=== PATIENT | male | born 1955 | race Caucasian/White ===

== ENCOUNTER 2016-11-20 15:51 | Emergency (ER) | payer BC ==
[~2016-11-20] VITALS: Ht 185.4 cm; Wt 139.2 kg
[~2016-11-20 15:51] MED LIST: ANTIVERT25 MG PO; BUSPIRONE HCL10 MG PO; MICARDIS HCT1 TABLE1 PO; TAZTIA XT180 M1 PO
[2016-11-20 16:57] LABS: HEMATOCRIT 48.5 % (38.0-50.0); MCH 26.8 PG (29.0-34.0); MCHC 30.7 G/DL (30.0-36.0); MCV 87.4 FL (86-99); MEAN PLAT.VOLUME 9.8 uM^3 (9.0-12.4); PLATELET COUNT 327 K/uL (156-360); RBC DIS.WIDTH-CV 12.9 % (11.8-14.6); RBC DIS.WIDTH-SD 41.4 % (39-53); RED BLOOD COUNT 5.55 M/uL (4.00-5.50); WHITE BLOOD COUNT 10.2 K/uL (4.1-10.2)
[2016-11-20] MEDS ORDERED: MEN 50 PLUS MU1 EACH PO (17:00)
[2016-11-20 17:05] LABS: CHLORIDE 102 mEq/L (99-109); POTASSIUM 4.5 mEq/L (3.7-5.4); SODIUM 139 mEq/L (136-147)
[2016-11-20 17:06] LABS: ADD MIUA? YES; BILIRUBIN NEGATIVE; BLOOD LARGE; COLOR YELLOW ((YELLOW)); GLUCOSE (STRIP) NEGATIVE; KETONES NEGATIVE; LEUKOCYTES MODERATE; NITRITE NEGATIVE; PROTEIN (STRIP) 30; UROBILINOGEN 0.2 MG/DL (0.2-1.0)
[2016-11-20 17:08] LABS: GLUCOSE 120 mg/dL (70-99)
[2016-11-20 17:09] LABS: ANION GAP 10 MEQ/L (2-14)
[2016-11-20 17:10] LABS: TOTAL BILIRUBIN 0.3 mg/dL (0.0-1.0)
[2016-11-20 17:11] LABS: ALKALINE PHOSPHATASE 66 IU/L (3-129); GFR ESTIMATE (CALCULATED) > 59 mL/min/
[2016-11-20 17:12] LABS: UREA NITROGEN (BUN) 26 mg/dL (9-23)
[2016-11-20 17:15] LABS: LIPASE 16 U/L (1.0-51.0)
[2016-11-20 17:20] LABS: RED BLOOD CELLS 40-50 /HPF (0-5)
[2016-11-20 17:21] LABS: BACTERIA NONE SEEN /HPF; EPITHELIAL CELLS RARE /HPF; MUCUS RARE /LPF; UCUL ADDED? NO
[2016-11-20] MEDS ORDERED: BACTRIM,SEPT1 TABLET PO (18:38)
[2016-11-20] MEDS ORDERED: NAPROSYN500 MG PO (18:38)
[2016-11-20 18:54] VITALS: BP 131/61
== END 2016-11-20 18:58 | disposition home or self-care (01) ==
LOC: EME 15:51 → RME 15:51
PROVIDERS: Physician Assistant
DX: L03.316 Cellulitis of umbilicus (principal); N39.0 Urinary tract infection, site not specified; K80.20 Calculus of gallbladder without cholecystitis without obstruction; C67.9 Malignant neoplasm of bladder, unspecified; E78.5 Hyperlipidemia, unspecified; I10 Essential (primary) hypertension; Z88.0 Allergy status to penicillin
CPT/HCPCS: 74177; 80053; 81003; 83690; 85027; 99281; 99284; J7030

== ENCOUNTER 2016-12-22 08:11 | Day surgery (SDC) | payer BC ==
[~2016-12-22] VITALS: Ht 182.9 cm; Wt 136.3 kg
[~2016-12-22 08:11] MED LIST changes: +BACTRIM,SEPT1 TABLET PO; +GLUCOSAMINE H1500 MG PO; +MEN 50 PLUS MU1 EACH PO; +NAPROSYN500 MG PO; +TAZTIA XT240 M1 PO
[2016-12-22 08:46] VITALS: BP 150/81
[2016-12-22 08:53] VITALS: BP 150/81
[2016-12-22] MEDS ORDERED: PERCOCET 5/31 TABLET PO (12:47)
[2016-12-22] MEDS ORDERED: COLACE100 MG PO (12:47)
[2016-12-22 13:53] VITALS: BP 142/70
[2016-12-22 15:00] VITALS: BP 138/74
== END 2016-12-22 15:07 | disposition home or self-care (01) ==
LOC: SDC 08:11
DX: K80.10 Calculus of gallbladder with chronic cholecystitis without obstruction (principal); K42.9 Umbilical hernia without obstruction or gangrene; F41.9 Anxiety disorder, unspecified; Z87.820 Personal history of traumatic brain injury; I10 Essential (primary) hypertension; Z82.49 Family history of ischemic heart disease and other diseases of the circulatory system; Z80.0 Family history of malignant neoplasm of digestive organs; Z87.891 Personal history of nicotine dependence; Z88.0 Allergy status to penicillin
CPT/HCPCS: 88302; 88304; J0330; J1100; J1580; J2250; J2405; J3010; J7050

== ENCOUNTER 2018-04-17 03:08 | Emergency (ER) | payer BC ==
[~2018-04-17] VITALS: Ht 182.9 cm; Wt 132.7 kg
[~2018-04-17 03:08] MED LIST changes: +COLACE100 MG PO; +PERCOCET 5/31 TABLET PO
[2018-04-17 06:41] VITALS: BP 138/90
== END 2018-04-17 06:43 | disposition home or self-care (01) ==
LOC: EME 03:08
DX: S01.81XA Laceration without foreign body of other part of head, initial encounter (principal); W22.03XA Walked into furniture, initial encounter; Y92.003 Bedroom of unspecified non-institutional (private) residence as the place of occurrence of the external cause; Z23 Encounter for immunization; C67.9 Malignant neoplasm of bladder, unspecified; E78.5 Hyperlipidemia, unspecified; Z88.0 Allergy status to penicillin
CPT/HCPCS: 70450; 99281; 99283